=== PATIENT | female | born 2000 | race Caucasian/White ===

== ENCOUNTER 2023-08-15 17:39 | Emergency (ER) | payer MEDICAID ==
[~2023-08-15] VITALS: Ht 162.6 cm; Wt 68.2 kg
[2023-08-15 17:42] VITALS: TEMP 98.6
[2023-08-15 19:01] VITALS: BP 124/83; PULSE 89
== END 2023-08-15 19:01 | disposition home or self-care (01) ==
LOC: COL.ER 17:39
DX: S63.501A Unspecified sprain of right wrist, initial encounter (principal); Z28.310 Unvaccinated for COVID-19; V89.2XXA Person injured in unspecified motor-vehicle accident, traffic, initial encounter; Y92.410 Unspecified street and highway as the place of occurrence of the external cause